=== PATIENT | female | born 1955 | race Caucasian/White ===

== ENCOUNTER 2018-11-29 10:35 | Outpatient (CLI) | payer OTHER ==
--- NOTE | 2018-11-29 14:01 | NM ---
NUCLEAR MEDICINE PARATHYROID SPECT AND PLANAR SCINTIGRAPHY: 11/29/2018 HISTORY: 63-year-old female with hypercalcemia TECHNIQUE: 27.5 mCi of technetium 99m-sestamibi injected IV. Planar scintigraphy obtained in 3 views, covering upper head to upper chest, immediately, at 1 hour, and at 2 hours. SPECT performed Nondiagnostic CT performed through same levels. Fusion of SPECT and CT in sagittal, axial, and coronal planes. FINDINGS: There is uptake in both the right and left lobes of the thyroid gland immediately, but this is asymme trically stronger on the left. After washout of much of the activity at one hour, there is persistent strong activity in the region of the left lobe of the thyroid gland on the one hour and 2 hour delayed images. The CT-SPECT fusion images demonstrate a moderately large nodule abutting the posterior surface of the left lobe o f the thyroid gland. IMPRESSION: Evidence for left-sided parathyroid adenoma, moderately large
== END 2018-11-29 10:36 | disposition home or self-care (01) ==
LOC: NM 10:35
DX: E83.52 Hypercalcemia (principal); D35.1 Benign neoplasm of parathyroid gland
CPT/HCPCS: 78072; A9500